=== PATIENT | female | born 1960 | race Caucasian/White ===

== ENCOUNTER 2022-07-12 14:03 | Outpatient (CLI) | payer OTHER, SELFPAY ==
[2022-07-12] MEDS: 0.9 % SODIUM CHLORIDE 1000 ml 1,000 ML IV (14:29)
[2022-07-12] MEDS: KETOROLAC 30 MG/ML inj IVP (14:33)
[2022-07-12 17:02] VITALS: BP 122/72; RESP 18; TEMP 36.6; O2SAT 100
--- NOTE | 2022-07-12 17:07 | PC.NURSE ---
Orders received from heather sotelo/Dr. Caldwell for 2,000 mL of NS to be infused. IV placed in left FA. 30mg of toradol given. Patient tolerated infusion well. Discharged to home with . Patient ambulatory to exit.
== END 2022-07-12 17:33 | disposition home or self-care (01) ==
LOC: MS OUT 14:06 → MEDSURG 14:10 → MS OUT 17:32
PROVIDERS: Visit Provider Family Medicine
DX: U07.1 COVID-19 (principal); E86.0 Dehydration; R51.9 Headache, unspecified
CPT/HCPCS: 96365; 99211; J1885; J7030